=== PATIENT | female | born 1980 | race Caucasian/White ===

== ENCOUNTER 2017-05-11 18:00 | Emergency (ER) | payer SELFPAY ==
[2017-05-11 19:15] VITALS: BP 119/82; PULSE 80; RESP 18; TEMP 97.6; O2SAT 97
== END 2017-05-11 18:23 | disposition left against medical advice (07) | DRG 951 ==
LOC: SUPCPDRO 18:00 → ED 18:00
DX: Z53.21 Procedure and treatment not carried out due to patient leaving prior to being seen by health care provider (principal)